=== PATIENT | female | born 1935 | race Asian ===

== ENCOUNTER 2018-08-28 08:00 | Emergency (ER) | payer MEDICARE, MEDICAID ==
[~2018-08-28] VITALS: Ht 165.1 cm; Wt 87.0 kg
--- NOTE | 2018-08-28 08:11 | NUR ---
82 Y/O FEMALE BIB AMBULANCE WITH C/O HEADACHE. PER REPORT PT WOKE UP WITH HIGH BP, HEADACHE AND BLURRED VISION, 200S/110. PT WAS GIVEN 0.1 MG CLONIDINE AT HOME AT 0630. PT NO C/O HEADACHE AT THIS TIME. PT STATES 0/10 PAIN. DAUGHTER IN LAW BEDSIDE. PT PLACED N CONT PULSE OX,NIBP. PAINTING INSTRUCTOR. NO ACUTE DISTRESS NOTED. NO C/O N/V/D, TRAUMA, SYNCOPE., CP., SOB.
[2018-08-28] MEDS ORDERED: LORA2TAB PO (08:45)
[2018-08-28] MEDS ORDERED: ALBU18HF INH (08:45)
[2018-08-28] MEDS ORDERED: IPRA3AMP30 INH (08:45)
[2018-08-28] MEDS ORDERED: CLON0.1T22 PO (08:45)
[2018-08-28] MEDS ORDERED: RISP0.5T3 PO (08:45)
[2018-08-28] MEDS ORDERED: SIMV40TA3 PO (08:45)
[2018-08-28] MEDS ORDERED: CLOP75TA PO (08:45)
[2018-08-28] MEDS ORDERED: AMIT25TA PO (08:45)
[2018-08-28] MEDS ORDERED: BENA40TA3 PO (08:45)
[2018-08-28] MEDS ORDERED: FURO20TA3 PO (08:45)
[2018-08-28] MEDS ORDERED: BUDE0.5A INH (08:45)
[2018-08-28] MEDS ORDERED: AMLO-150 PO (08:45)
[2018-08-28] MEDS ORDERED: SERT25TA3 PO (08:45)
[2018-08-28] MEDS ORDERED: CARV6.2512 PO (08:45)
[2018-08-28] MEDS ORDERED: FORM20VI INH (08:45)
[2018-08-28] MEDS ORDERED: MONT10TA9 PO (08:45)
[2018-08-28] MEDS ORDERED: TRAM50TA2 PO (08:45)
--- NOTE | 2018-08-28 08:53 | NUR ---
PT RESTING ON GURNEY. NO ACUTE DISTRESS NOTED. DAUGHTER IN LAW BEDSIDE. NO NEEDS REQUESTED AT THIS TIME.
[2018-08-28] MEDS ORDERED: ALBUTEROL/IPRATROPIUM 2.5MG/0.5MG, 3 ML ONE (09:14)
[2018-08-28] MEDS ORDERED: PLEASE ENTER ALLERGIES MC SCH (09:30)
[2018-08-28] MEDS ORDERED: ALBUTEROL/IPRATROPIUM 2.5MG/0.5MG, 3 ML NPPB ONE (09:30)
[2018-08-28 09:36] LABS: BASOPHILS # (AUTO) 0.03 x10^3/uL (0-0.1); BASOPHILS % (AUTO) 0 % (0-1); EOSINOPHILS # (AUTO) 0.11 x10^3/uL (0-0.4); EOSINOPHILS % (AUTO) 1 % (1-7); LYMPHOCYTES # (AUTO) 1.26 x10^3/uL (1-3.4); LYMPHOCYTES % (AUTO) 16 % (22-44); MD NO; MEAN CORPUSCULAR HEMOGLOBIN 29.4 pg (27.0-34.8); MEAN CORPUSCULAR HGB CONC 32.3 g/dL (32.4-35.8); MEAN PLATELET VOLUME 7.9 fL (7.4-10.4); MONOCYTES # (AUTO) 0.41 x10^3/uL (0.2-0.8); MONOCYTES % (AUTO) 5 % (2-9); NEUTROPHILS # (AUTO) 6.31 x10^3/uL (1.8-6.8); NEUTROPHILS % (AUTO) 78 % (42-75); PLATELET COUNT 308 x10^3/uL (130-400); RED BLOOD COUNT 4.63 x10^6/uL (3.82-5.3); RED CELL DISTRIBUTION WIDTH 14.3 % (9.6-15.2)
[2018-08-28 09:48] LABS: ALBUMIN 3.9 g/dL (3.4-5.0); ANION GAP 6 mmol/L (5-15); CALCIUM 9.1 mg/dL (8.5-10.1); CHLORIDE 109 mmol/L (98-107)
[2018-08-28 09:53] LABS: CREATININE 0.91 mg/dL (0.55-1.02); TROPONIN I < 0.015 ng/mL (0.000-0.045)
[2018-08-28 10:10] VITALS: BP 121/70
--- NOTE | 2018-08-28 10:22 | NUR ---
PT STRIAGHT CATH'D. PT TOLERATED WITH NO COMPLICATIONS. DAUGHTER IN LAW BEDSIDE DURING PROCEDURE. NO NEEDS REQUESTED AT THIS TIME.
[2018-08-28 10:36] LABS: MICROSCOPIC AUTO
[2018-08-28 10:39] LABS: CULTURE INDICATED? YES
--- NOTE | 2018-08-28 11:19 | NUR ---
Patient/Caregiver given discharge instructions and they have confirmed that they understand the instructions. Patient ambulatory with steady gait TO WHEELCHAIR. PT TAKEN OUT VIA WC,. PT LEFT WITH ALL PERSONAL BELONGINGS.
== END 2018-08-28 11:22 | disposition home or self-care (01) ==
LOC: ED 09:53
DX: F41.1 Generalized anxiety disorder (principal); I50.9 Heart failure, unspecified; I11.0 Hypertensive heart disease with heart failure; E78.5 Hyperlipidemia, unspecified; J44.9 Chronic obstructive pulmonary disease, unspecified; G30.9 Alzheimer's disease, unspecified
CPT/HCPCS: 36415; 71045; 80048; 81001; 82040; 84484; 85025; 87086; 93005; 94640; 99284; J7620

== ENCOUNTER → 2019-02-12 | Outpatient (CLI) | payer MEDICARE, MEDICAID ==
[~2019-02-12] MED LIST: ALBU18HF INH; AMIT25TA PO; AMLO-150 PO; BENA40TA3 PO; BUDE0.5A INH; CARV6.2512 PO; CLON0.1T22 PO; CLOP75TA PO; FORM20VI INH; FURO20TA3 PO; IPRA3AMP30 INH; LORA2TAB PO; MONT10TA9 PO; OMNIPAQUE 350 MG/ML, 100ML BOTTLE ONE; RISP0.5T3 PO; SERT25TA3 PO; SIMV40TA3 PO; TRAM50TA2 PO
== END | disposition home or self-care (01) ==
LOC: CFH 12:52
PROVIDERS: ATTEND Internal Medicine Gastroenterology
DX: Z01.812 Encounter for preprocedural laboratory examination (principal); K57.30 Diverticulosis of large intestine without perforation or abscess without bleeding; K80.20 Calculus of gallbladder without cholecystitis without obstruction; N85.2 Hypertrophy of uterus; N85.8 Other specified noninflammatory disorders of uterus; E27.8 Other specified disorders of adrenal gland; I70.0 Atherosclerosis of aorta; M85.88 Other specified disorders of bone density and structure, other site; M16.0 Bilateral primary osteoarthritis of hip; R29.890 Loss of height
CPT/HCPCS: 74177; 82565; Q9967

== ENCOUNTER → 2019-02-18 | Outpatient (CLI) | payer MEDICARE, MEDICAID ==
[~2019-02-18] MED LIST changes: -OMNIPAQUE 350 MG/ML, 100ML BOTTLE ONE
== END | disposition home or self-care (01) ==
LOC: CVU 14:50
PROVIDERS: ATTEND Internal Medicine Cardiovascular Disease
DX: I34.8 Other nonrheumatic mitral valve disorders (principal); I11.0 Hypertensive heart disease with heart failure; I50.9 Heart failure, unspecified; E78.5 Hyperlipidemia, unspecified; Z87.891 Personal history of nicotine dependence
CPT/HCPCS: 93306